=== PATIENT | male | born 1995 | race Caucasian/White ===

== ENCOUNTER 2020-03-31 04:41 | Emergency (ER) | payer BC, SELFPAY ==
--- NOTE | 2020-03-31 04:43 | ED.CHESTPAIN ---
HPI - Chest Pain General Chief Complaint: Chest Pain Stated Complaint: hurt ribs two weeks ago, pain still Time Seen by Provider: 03/31/20 04:43 Source: patient Mode of arrival: Ambulatory Limitations: no limitations History of Present Illness HPI narrative: 25-year-old male without significant medical history, admits to frequent use of marijuana but denies other illicit drugs presents with a friend and a chief complaint of severe left-sided rib pain. He states he suffered an injury a few weeks ago in which he was snowboarding and fell onto his side. He was not traveling high rate of speed into not strike another object. He developed some rib pain at that time which got better after a few days. He denies any shortness of breath or nausea or vomiting. He has had no hemoptysis. He did not suffer any head, neck or back pain during injury. He had essentially return to his baseline until this morning when he rolled over in bed and felt pop in the region of his previous rib pain. Since then he has had significant sharp and stabbing pain in the region of his left mid rib posteriorly. His pain is much worse with deep breath and motion and improves with rest. He took a large amount of Naprosyn prior to his arrival. MD complaint: chest pain Onset (ago): week(s) Duration: intermittent Pain location: left chest Severity: moderate Quality: sharp Relieving factors: rest Exacerbating factors: inspiration, palpation and movement Context: trauma/injury Treatments prior to arrival chest pain: other Related Data Previous Rx's Medication Instructions Recorded cyclobenzaprine 10 mg PO TID PRN #14 tab 03/31/20 ketorolac 10 mg PO Q6H PRN #14 tab 03/31/20 lidocaine [Lidoderm] 1 patch TOP DAILY #15 each 03/31/20 Allergies Allergy/AdvReac Type Severity Reaction Status Date / Time No Known Drug Allergies Allergy Verified 03/31/20 04:50 Review of Systems Constitutional Constitutional: Denies chills, Denies fatigue, Denies fever(s), Denies frequent falls, Denies lethargy and Denies weakness Eyes Eyes: Denies change in vision, Denies eye discharge, Denies irritation and Denies loss of vision ENT Ears, Nose, Mouth, and Throat: Denies change in voice, Denies dizziness, Denies neck pain, Denies sore throat and Denies throat swelling Cardiovascular Cardiovascular: Reports chest pain, Denies irregular heart rhythm, Denies lightheadedness, Denies palpitations, Denies dyspnea, Denies dyspnea on exertion and Denies orthopnea Respiratory Respiratory: Denies cough, Denies dyspnea, Denies dyspnea on exertion and Denies wheezing Gastrointestinal Gastrointestinal: Denies abdominal pain, Denies change in bowel habits, Denies diarrhea, Denies nausea and Denies vomiting Musculoskeletal Musculoskeletal: Denies neck pain and Denies numbness Integumentary/Breasts Skin/Breast: Denies pruritus, Denies erythema, Denies rash and Denies wounds Neurologic Neurologic: Denies behavioral changes, Denies confusion, Denies dizziness, Denies frequent falls, Denies loss of vision, Denies numbness and Denies weakness Psychiatric Psychiatric: Denies anxiety, Denies behavioral changes, Denies confusion, Denies depression, Denies homicidal ideation and Denies suicidal ideation Endocrine Endocrine: Denies fatigue, Denies flushing and Denies palpitations Hematologic/Lymphatic Hematologic/Lymphatic: Denies easy bruising Allergic/Immunologic Allergic/Immunologic: Denies urticaria, Denies throat swelling and Denies wheezing Patient History Social History Smoking Status: Current every day smoker tobacco type: vaping alcohol intake frequency: 0-2 drinks per day Substance Use Type: marijuana Exam Narrative Exam Narrative: GENERAL: [25] year old patient appears stated age. Well-nourished, well-developed patient, in moderate distress. Obviously uncomfortable, rubbing his left-sided ribs GCS 15 HEAD: Atraumatic. Normocephalic. EYES: Pupils equal round and reactive. ENT: Nose without bleeding, purulent drainage. NECK: Trachea midline. Non tender CARDIOVASCULAR: Regular rate and rhythm without murmurs, gallops, or rubs. RESPIRATORY: Clear to auscultation. Breath sounds equal bilaterally. No wheezes, rales, or rhonchi. GASTROINTESTINAL: Abdomen soft, non-tender, nondistended. EXTREMITIES: No edema or joint tenderness. BACK:No midline tenderness. Severe pain along distribution of left 8th rib. No crepitance. NEURO: AOx3. SKIN: No rash or erythema of visible areas Initial Vital Signs Initial Vital Signs: Vital Signs Temperature 97.9 F 03/31/20 04:50 Pulse Rate 77 03/31/20 04:50 Respiratory Rate 22 03/31/20 04:50 Blood Pressure 156/96 H 03/31/20 04:50 Pulse Oximetry 100 03/31/20 04:50 Course Orders Ordered: ED Orders 03/31/20 04:53 XR ribs LT min 3V w CXR1V Stat Discontinued Medications Cyclobenzaprine HCl (Cyclobenzaprine 10 Mg Prepack) 1 bottle MISC SEEINSTR ONE Stop: 03/31/20 04:54 Last Admin: 03/31/20 05:01 Dose: 1 bottle Documented by: Lidocaine (Lidocaine Patch 1 Each Adh..Patch) 1 each TOP NOW ONE Stop: 03/31/20 04:54 Last Admin: 03/31/20 05:01 Dose: 1 each Documented by: Vital Signs Vital signs: Vital Signs - 8 hr 03/31/20 04:50 Temperature 97.9 F Pulse Rate 77 Respiratory Rate 22 Blood Pressure 156/96 H Pulse Oximetry 100 MDM - Chest Pain Imaging Data Chest x-ray: Radiologist's Impression: No fracture or pneumothorax Discharge Plan Departure Patient Disposition: Home Clinical Impression: Contusion of rib on left side Qualifiers: Encounter type: initial encounter Qualified Code(s): S20.212A - Contusion of left front wall of thorax, initial encounter Instructions: DI for Rib Fracture Activity Restrictions/Additional Instructions: *You have been diagnosed with [left posterior rib pain, no evidence of fracture on x-ray] *What to do: *Take medications as directed: Sent to [facility] in [place] *Follow up with your primary care provider in 2-3 days, call for an appointment. Let them know you were seen in the Emergency Department and that we ask that you be seen in follow up *Return to ER if you should have any new, worsening or concerning symptoms Prescriptions: New cyclobenzaprine 10 mg tablet 10 mg PO TID PRN (Reason: muscle spasm) Qty: 14 RF: 0 ketorolac 10 mg tablet 10 mg PO Q6H PRN (Reason: pain) Qty: 14 RF: 0 lidocaine [Lidoderm] 5 % adhesive patch,medicated 1 patch TOP DAILY Qty: 15 RF: 0
[2020-03-31 04:50] VITALS: BP 156/96; PULSE 77; RESP 22; TEMP 36.6; O2SAT 100; BMI 28.7
--- NOTE | 2020-03-31 04:53 | DI.RAD.S_ITS ---
PROCEDURE: XR RIBS LT MIN 3V W CXR1V INDICATIONS: severe L rib pain after fall TECHNIQUE: To views of the left ribs were acquired, along with a single view chest. COMPARISON: None. FINDINGS: Surgical changes and devices: None. Bones and chest wall: No fractures or dislocations. No suspicious bony lesions. Overlying soft tissues appear unremarkable. Lungs and pleura: No pleural effusions or pneumothorax. Lungs appear clear. Mediastinum: Mediastinal contours appear normal. Heart size is normal. IMPRESSION: No displaced rib fracture. Dictated by: Judy Oneill MD, PhD on 03/31/2020 at 8:33 Approved by: Judy Oneill MD, PhD on 03/31/2020 at 8:34
[2020-03-31] MEDS: CYCLOBENZAPRINE 10 MG PREPACK 1 BOTTLE MISC (05:01)
[2020-03-31] MEDS: LIDOCAINE PATCH 1 EACH ADH..PATCH TOP (05:01)
[2020-03-31 05:38] VITALS: BP 123/57; PULSE 61; RESP 17; O2SAT 100
--- NOTE | 2020-03-31 18:23 | PC.NURSE ---
Pt called stating that none of his prescriptions had gone through to [facility]. Checked discharge / prescriptions area and noted that they were sent to [facility] but not received by [facility]. Called in all three prescriptions to pharmacy of choice ([facility]). Pt aware of plan.
== END 2020-03-31 05:38 | disposition home or self-care (01) ==
PROVIDERS: Emergency Provider Emergency Medicine
DX: S20.212A Contusion of left front wall of thorax, initial encounter (principal); V00.311A Fall from snowboard, initial encounter
CPT/HCPCS: 71101; 99283